=== PATIENT | female | born 1930 | race Caucasian/White ===

== ENCOUNTER 2020-03-22 10:11 | Emergency (ER) | payer OTHER ==
[2020-03-22] MEDS ORDERED: ONDANSETRON 4 MG/2 ML VIAL ONE (11:00)
[2020-03-22] MEDS ORDERED: NA CHLORIDE 0.9% 500 ML ONE (11:00)
[2020-03-22] MEDS ORDERED: MORPHINE 2 MG/ML SYR ONE (11:00)
[2020-03-22 11:18] LABS: Absolute Lymphocytes (CBC) 0.5 K/uL (0.7-4.9); Basophils % 0.5 % (0-1.3); Hematocrit 38.3 % (36.0-45.0); Lymphocytes % 10.2 % (15.3-44.8); MPV 7.6 fL (7.6-11.3); RBC Red Blood Cell Count 4.37 M/uL (3.86-4.86)
[2020-03-22 11:38] LABS: Albumin 3.5 g/dL (3.4-5.0); Bilirubin Total 0.7 mg/dL (0.2-1.0); CKMB Creatine Kinase MB 2.8 ng/mL (0.3-3.6); Potassium 4.1 mmol/L (3.5-5.1); Protein, Total 7.4 g/dL (6.4-8.2); Troponin (Emerg Dept Use Only) 0.02 ng/mL (0.0-0.045)
--- NOTE | 2020-03-22 11:48 | RAD REPORT ---
EXAM DESCRIPTION: CT - Angio Aorta For Dissection - 03/22/2020 11:32 am CLINICAL HISTORY: DISSECTION COMPARISON: CT chest April 2017 TECHNIQUE: Dynamically enhanced 3 mm thick images of the chest, abdomen, and upper pelvis were obtai libia during administration of approximately 150mL Isovue 370 IV contrast. Sagittal and coronal reconst ruction images were generated using MIP and reviewed. Exam utilizes a protocol to evaluate entire cou rse of the aorta. All CT scans are performed using dose optimization technique as appropriate and may include automated exposure control or mA/KV adjustment according to patient size. FINDINGS: No aortic aneurysm, dissection or acute finding seen. Ascending aorta is 3.5 cm. Patient h as prominent aortic calcifications without central displacement. No mural thrombus. Pulmonary arteries are normal as well. Biatrial enlargement increases overall cardiac size. There is suspected left ventricular hypertrophy as well. No E fusion. No acute infiltrate or mass identified. Parenchymal opacification in the anterior midportion of each lung field has some associated bronchiectasis. This appears to be all chronic lung disease. Minimal n odularity in the lateral mid right chest is also stable. No pleural thickening, pleural effusion or p neumothorax. No abnormal mediastinal or hilar mass or lymphadenopathy seen. No chest wall mass or abnormal axillar y lymphadenopathy. No esophageal wall thickening or mass identifiable. Celiac, SMA and renal arteries show no suspicious findings. Solid abdominal viscera show no suspiciou s findings. Renal function is symmetric. Patient has a prominent gallbladder. Gallstones are present in the fundus. No biliary tree dilatation. No mass or abnormal lymphadenopathy. No acute bowel findi ng seen. Moderate stool volume throughout the colon. Minimal congestion or edema of the peritoneal an d subcutaneous fatty tissues. No free air or pneumatosis. No uterine or urinary bladder abnormality. Ovaries are not clearly defined. No adnexal mass. Approximately 50-60% T8 compression fracture is seen. No pathologic component. Posterior elements are intact. No paraspinal component. Fracture was not present 2017. IMPRESSION: Aortic atherosclerotic calcifications without dissection, aneurysm or acute aortic findi ng. Approximately 50-60% T8 compression fracture. This is new from 2017 and shows some characteristics in dicating that this is acute or subacute in age. No pathologic component. Chronic fibro emphysematous lung changes not substantially different from 2017. Cardiomegaly with esteban trial enlargement and suspected left ventricular muscular hypertrophy. No other significant findings on chest, abdomen and upper pelvis examination.
[2020-03-22 11:49] LABS: Urine Blood NEGATIVE (NEG); Urine Glucose NEGATIVE (NEG); Urine Protein NEGATIVE (NEG); Urine pH 5.5 (5.0-7.0)
[2020-03-22] MEDS ORDERED: CEFTRIAXONE/SWI 1gm 1 GM/10 ML SYR ONE (12:00)
[2020-03-22 13:33] VITALS: TEMP 97.7
[2020-03-22 13:39] VITALS: BP 140/86; O2SAT 94
--- NOTE | 2020-03-22 19:58 | ER ---
Nurse's Notes [facility] Name: Marcela Urban Age: 89 yrs Sex: Female : 1930 Arrival Date: 03/22/2020 Time: 10:12 Bed 19 Private MD: Diagnosis: Fracture of thoracic vertebra-T8;Urinary tract infection, site not specified;Atrial fibrillation and flutter Presentation: 03/22 10:22 Chief complaint: Patient states: back pain x 1 week. Coronavirus screen: Proceed with normal triage. Patient denies a cough. Patient denies shortness of breath or difficulty breathing. Patient denies measured and/or subjective temperature greater than 100.4F prior to today's visit. Patient denies travel on a cruise ship or to a country the [facility] currently lists as an affected area. Patient denies contact with known and/or suspected case of COVID-19. Ebola Screen: Patient denies exposure to infectious person. Patient denies travel to an Ebola-affected area in the 21 days before illness onset. Initial Sepsis Screen: Does the patient meet any 2 criteria? No. Patient's initial sepsis screen is negative. Does the patient have a suspected source of infection? No. Patient's initial sepsis screen is negative. Risk Assessment: Do you want to hurt yourself or someone else? Patient reports no desire to harm self or others. Onset of symptoms is unknown. 10:22 Method Of Arrival: Ambulatory 10:22 Acuity: THU 4 ss Historical: - Allergies: 10:24 No Known Allergies; ss - PMHx: 10:24 Atrial Fib; Hypertension; Hypothyroidism; ss - PSHx: 10:24 Laminectomy; Right Shoulder; ss - Immunization history:: Adult Immunizations up to date. - Social history:: Smoking status: Patient denies any tobacco usage or history of. - Family history:: not pertinent. Screenin:29 Abuse screen: Denies threats or abuse. Nutritional screening: No deficits noted. Tuberculosis screening: No symptoms or risk factors identified. Fall Risk None identified. Assessment: 10:26 General: Appears uncomfortable, Behavior is cooperative, appropriate for age. Pain: Pain radiates to left mid back and right mid back Pain currently is 6 out of 10 on a pain scale. Neuro: Level of Consciousness is awake, alert, obeys commands, Oriented to person, place. Cardiovascular: Capillary refill < 3 seconds Patient's skin is warm and dry. Respiratory: Airway is patent. GI: Abdomen is non-distended, Bowel sounds present X 4 quads. Abd is non tender. GI: Parent/caregiver reports the patient having flatulence. : No signs and/or symptoms were reported regarding the genitourinary system. Musculoskeletal: Circulation, motion, and sensation intact. Capillary refill < 3 seconds. Vital Signs: 10:22 BP 140 / 87; Resp 17; Temp 97.7(TE); Weight 43.54 kg; ss 10:45 BP 134 / 77; Pulse 71; Resp 18; Pulse Ox 100% ; ah 11:15 BP 131 / 96; Pulse 80; Resp 17; Pulse Ox 100% ; ah 12:00 BP 135 / 74; Pulse 69; Resp 16; Pulse Ox 100% ; ah 12:30 BP 140 / 86; Pulse 64; Resp 16; Pulse Ox 94% ; ah ED Course: 10:12 Patient arrived in ED. [facility] 10:15 Michael Richardson MD is Attending Physician. ermias 10:16 Keyla Fox, RN is Primary Nurse. ah 10:23 Triage completed. ss 10:24 Arm band placed on right wrist. ss 10:29 Patient has correct armband on for positive identification. Placed in gown. Bed in low ah position. Call light in reach. Side rails up X 1. Adult w/ patient. Pulse ox on. NIBP on. 11:00 Inserted saline lock: 20 gauge in right antecubital area, using aseptic technique. ah 11:01 Urine collected: clean catch specimen, clear. dh3 11:12 Lipase Sent. ah 11:35 CT Aorta for Dissection In Process Unspecified. EDMS 12:11 Eliecer Murdock MD is Referral Physician. ermias 12:11 Jonathan Brown MD is Referral Physician. ermias 12:30 No provider procedures requiring assistance completed. IV discontinued, intact, ah bleeding controlled, No redness/swelling at site. Administered Medications: 11:00 Drug: NS 0.9% 500 ml Route: IV; Rate: bolus; Site: right antecubital; 12:17 Follow up: Response: No adverse reaction; IV Status: Completed infusion; IV Intake: ah 500ml 11:05 Drug: morphine 2 mg Route: IVP; Site: right antecubital; 12:16 Follow up: Response: No adverse reaction 11:05 Drug: Zofran (Ondansetron) 4 mg Route: IVP; Site: right antecubital; 12:16 Follow up: Response: No adverse reaction 11:45 Drug: Rocephin 1 grams Route: IV; Rate: per protocol; Site: right antecubital; 22:41 Follow up: Response: No adverse reaction; IV Status: Completed infusion Intake: 12:17 IV: 500ml; Total: 500ml. Outcome: 12:12 Discharge ordered by . ermias 12:30 Discharged to home via wheelchair. 12:30 Condition: stable 12:30 Discharge instructions given to patient, Instructed on discharge instructions, follow up and referral plans. Demonstrated understanding of instructions, follow-up care, medications, Prescriptions given X 2. 13:25 Patient left the ED. bd Signatures: Dispatcher [employer] EDMS Shawnee Arellano Corey, MD MD cha Smirch, Shelby, RN RN Danna Sellers [facility] Omar Simmons [facility] Keyla Fox, RN RN Corrections: (The following items were deleted from the chart) 12:16 12:15 morphine 2 mg IVP in right antecubital [facility]
--- NOTE | 2020-03-22 19:59 | EDPHYS ---
Physician Documentation [facility] Name: Marcela Urban Age: 89 yrs Sex: Female : 1930 Arrival Date: 03/22/2020 Time: 10:12 Bed 19 Private MD: LYNN Physician Michael Richardson HPI: 03/22 10:33 This 89 yrs old Female presents to ER via Ambulatory with complaints of Back ermias Pain. 10:33 The patient presents with pain that is acute, and decreased range of motion. The ermias symptoms are located in the left subscapular area, right subscapular area and thoracic area. Onset: The symptoms/episode began/occurred 3 day(s) ago. The pain does not radiate. Associated signs and symptoms: The patient has no apparent associated signs or symptoms. The problem was sustained when bending over, from unknown cause. Modifying factors: The patient symptoms are alleviated by nothing, remaining still, the patient symptoms are aggravated by any movement, bending. Severity of symptoms: At their worst the symptoms were mild, moderate, in the emergency department the symptoms are unchanged. The patient has not experienced similar symptoms in the past. Historical: - Allergies: 10:24 No Known Allergies; ss - PMHx: 10:24 Atrial Fib; Hypertension; Hypothyroidism; ss - PSHx: 10:24 Laminectomy; Right Shoulder; ss - Immunization history:: Adult Immunizations up to date. - Social history:: Smoking status: Patient denies any tobacco usage or history of. - Family history:: not pertinent. ROS: 10:33 Constitutional: Negative for fever, chills, and weight loss, Eyes: Negative for injury, ermias pain, redness, and discharge, ENT: Negative for injury, pain, and discharge, Neck: Negative for injury, pain, and swelling, Cardiovascular: Negative for chest pain, palpitations, and edema, Respiratory: Negative for shortness of breath, cough, wheezing, and pleuritic chest pain, Abdomen/GI: Negative for abdominal pain, nausea, vomiting, diarrhea, and constipation, : Negative for injury, bleeding, discharge, and swelling, MS/Extremity: Negative for injury and deformity, Skin: Negative for injury, rash, and discoloration, Neuro: Negative for headache, weakness, numbness, tingling, and seizure, Psych: Negative for depression, anxiety, suicide ideation, homicidal ideation, and hallucinations, Allergy/Immunology: Negative for hives, rash, and allergies, Endocrine: Negative for neck swelling, polydipsia, polyuria, polyphagia, and marked weight changes, Hematologic/Lymphatic: Negative for swollen nodes, abnormal bleeding, and unusual bruising. 10:33 Back: Positive for injury or acute deformity, decreased range of motion, pain at rest, pain with movement, of the left scapular area, right scapular area, left subscapular area, right subscapular area, thoracic area and lumbar area. Exam: 10:33 Constitutional: This is a well developed, well nourished patient who is awake, alert, ermias and in no acute distress. Head/Face: Normocephalic, atraumatic. Eyes: Pupils equal round and reactive to light, extra-ocular motions intact. Lids and lashes normal. Conjunctiva and sclera are non-icteric and not injected. Cornea within normal limits. Periorbital areas with no swelling, redness, or edema. ENT: Nares patent. No nasal discharge, no septal abnormalities noted. Tympanic membranes are normal and external auditory canals are clear. Oropharynx with no redness, swelling, or masses, exudates, or evidence of obstruction, uvula midline. Mucous membranes moist. Neck: Trachea midline, no thyromegaly or masses palpated, and no cervical lymphadenopathy. Supple, full range of motion without nuchal rigidity, or vertebral point tenderness. No Meningismus. Chest/axilla: Normal chest wall appearance and motion. Nontender with no deformity. No lesions are appreciated. Cardiovascular: Regular rate and rhythm with a normal S1 and S2. No gallops, murmurs, or rubs. Normal PMI, no JVD. No pulse deficits. Respiratory: Lungs have equal breath sounds bilaterally, clear to auscultation and percussion. No rales, rhonchi or wheezes noted. No increased work of breathing, no retractions or nasal flaring. Abdomen/GI: Soft, non-tender, with normal bowel sounds. No distension or tympany. No guarding or rebound. No evidence of tenderness throughout. Female : Normal external genitalia. Skin: Warm, dry with normal turgor. Normal color with no rashes, no lesions, and no evidence of cellulitis. MS/ Extremity: Pulses equal, no cyanosis. Neurovascular intact. Full, normal range of motion. Neuro: Awake and alert, GCS 15, oriented to person, place, time, and situation. Cranial nerves II-XII grossly intact. Motor strength 5/5 in all extremities. Sensory grossly intact. Cerebellar exam normal. Normal gait. Psych: Awake, alert, with orientation to person, place and time. Behavior, mood, and affect are within normal limits. 10:33 Back: pain, that is moderate, ROM is painful, normal spinal alignment noted, CVA tenderness, that is mild, vertebral tenderness, is not appreciated, muscle spasm, is appreciated in the left scapular area, right scapular area, left subscapular area, right subscapular area, thoracic area, lumbar area, left mid back and right mid back. 11:02 ECG was reviewed by the Attending Physician. [facility] Vital Signs: 10:22 BP 140 / 87; Resp 17; Temp 97.7(TE); Weight 43.54 kg; ss 10:45 BP 134 / 77; Pulse 71; Resp 18; Pulse Ox 100% ; 11:15 BP 131 / 96; Pulse 80; Resp 17; Pulse Ox 100% ; 12:00 BP 135 / 74; Pulse 69; Resp 16; Pulse Ox 100% ; 12:30 BP 140 / 86; Pulse 64; Resp 16; Pulse Ox 94% ; MDM: 10:15 Patient medically screened. [facility] 10:37 Data reviewed: vital signs, nurses notes, lab test result(s), EKG, radiologic studies, [facility] CT scan, plain films. 12:06 Differential diagnosis: Cholelithiasis chronic back pain, Ligament Injury [facility] Osteoarthritis Osteoporosis ruptured disc, Scoliosis spinal injury, sprain, Ureterolithiasis. Data interpreted: monitor technician: rate is 80 beats/min, rhythm is atrial fibrillation, Pulse oximetry: on room air is 97 %. Test interpretation: by ED physician or midlevel provider: ECG, plain radiologic studies. Counseling: I had a detailed discussion with the patient and/or guardian regarding: the historical points, exam findings, and any diagnostic results supporting the discharge/admit diagnosis, lab results, radiology results, the need for outpatient follow up, for definitive care, an toggler. Medication response: Zofran partially relieved the patient's nausea. 12:15 ED course: explained all findings, dw dr crook, will follow up dr ermias tan vertebroplasty possible, also uti will be treated. 03/22 10:33 Order name: CBC with Diff; Complete Time: 11:51 [facility] 03/22 10:33 Order name: Comprehensive Metabolic Panel; Complete Time: 11:51 [facility] 03/22 10:33 Order name: Lipase; Complete Time: 11:51 [facility] 03/22 10:33 Order name: CK; Complete Time: 11:51 [facility] 03/22 10:33 Order name: Ckmb; Complete Time: 11:51 [facility] 03/22 10:33 Order name: Troponin (emerg Dept Use Only); Complete Time: 11:51 [facility] 03/22 10:33 Order name: CT Aorta for Dissection; Complete Time: 11:51 [facility] 03/22 11:01 Order name: Urine Culture [facility] 03/22 11:45 Order name: Urine Dipstick--Ancillary (enter results); Complete Time: 11:51 03/22 11:58 Order name: CREATININE WHOLE BLOOD; Complete Time: 12:02 EDMS 03/22 10:33 Order name: Urine Dipstick-Ancillary (obtain specimen); Complete Time: 11:01 [facility] 03/22 10:33 Order name: EKG; Complete Time: 10:34 [facility] 03/22 10:33 Order name: EKG - Nurse/Tech; Complete Time: 11:02 [facility] EC:02 Rate is 77 beats/min. Rhythm is irregularly irregular. QRS [place] is Normal. VT interval ermias is normal. QRS interval is normal. QT interval is normal. No Q waves. T waves are Normal. No ST changes noted. Clinical impression: Atrial Fibrillation. Interpreted by me. Reviewed by me. Administered Medications: 11:00 Drug: NS 0.9% 500 ml Route: IV; Rate: bolus; Site: right antecubital; 12:17 Follow up: Response: No adverse reaction; IV Status: Completed infusion; IV Intake: ah 500ml 11:05 Drug: morphine 2 mg Route: IVP; Site: right antecubital; 12:16 Follow up: Response: No adverse reaction 11:05 Drug: Zofran (Ondansetron) 4 mg Route: IVP; Site: right antecubital; 12:16 Follow up: Response: No adverse reaction 11:45 Drug: Rocephin 1 grams Route: IV; Rate: per protocol; Site: right antecubital; 22:41 Follow up: Response: No adverse reaction; IV Status: Completed infusion Disposition: 03/22/20 12:12 Discharged to Home. Impression: Fracture of thoracic vertebra - T8, Urinary tract infection, site not specified, Atrial fibrillation and flutter. - Condition is Stable. - Discharge Instructions: Atrial Fibrillation, Spinal Compression Fracture, Urinary Tract Infection, Adult, Urinary Tract Infection, Adult, [id number]-[id number], Balloon Kyphoplasty, Care After, Balloon Kyphoplasty. - Prescriptions for Augmentin 500- 125 mg Oral Tablet - take 1 tablet by ORAL route every 12 hours for 7 days; 14 tablet. Tylenol- Codeine #3 300-30 mg Oral Tablet - take 1 tablet by ORAL route every 4 hours As needed; 26 tablet. - Medication Reconciliation Form, Thank You Letter, Antibiotic Education, Prescription Opioid Use form. - Follow up: Private Physician; When: 2 - 3 days; Reason: Recheck today's complaints, Continuance of care, Re-evaluation by your physician. Follow up: Eliecer Murdock MD; When: 2 - 3 days; Reason: Recheck today's complaints, Continuance of care, Re-evaluation by your physician. Follow up: Jonathan Tan MD; When: 2 - 3 days; Reason: Recheck today's complaints, Re-evaluation by your physician. - Problem is new. - Symptoms have improved. Signatures: Dispatcher [employer] EDMS Shawnee Arellano Corey, MD MD cha Smirch, Shelby, RN RN Keyla Fox RN RN Corrections: (The following items were deleted from the chart) 13:25 12:12 03/22/2020 12:12 Discharged to Home. Impression: Fracture of thoracic vertebra - bd T8; Urinary tract infection, site not specified; Atrial fibrillation and flutter. Condition is Stable. Forms are Medication Reconciliation Form, Thank You Letter, Antibiotic Education, Prescription Opioid Use. Follow up: Private Physician; When: 2 - 3 days; Reason: Recheck today's complaints, Continuance of care, Re-evaluation by your physician. Follow up: Eliecer Murdock; When: 2 - 3 days; Reason: Recheck today's complaints, Continuance of care, Re-evaluation by your physician. Follow up: Jonathan Tan; When: 2 - 3 days; Reason: Recheck today's complaints, Re-evaluation by your physician. Problem is new. Symptoms have improved. ermias
== END 2020-03-22 13:25 | disposition home or self-care (01) ==
LOC: ER 10:11
DX: N39.0 Urinary tract infection, site not specified (principal); I48.91 Unspecified atrial fibrillation; I48.92 Unspecified atrial flutter
CPT/HCPCS: 93005; 87088; 85025; 87086; 36415; 82550; 82565; 81003; 84484; 82553; 83690; 80053; 71275; 74175; Q9967; J2270; J0696; J7040; J2405; 87077; 87186; 96361; 96365; 96366; 96375; 99284

== ENCOUNTER 2020-04-06 21:43 | Observation (INO) | payer OTHER ==
[2020-04-06 22:23] LABS: Absolute Lymphocytes (CBC) 0.7 K/uL (0.7-4.9); Basophils % 1.1 % (0-1.3); Hematocrit 34.4 % (36.0-45.0); Lymphocytes % 17.8 % (15.3-44.8); MPV 7.7 fL (7.6-11.3); RBC Red Blood Cell Count 3.89 M/uL (3.86-4.86)
[2020-04-06 22:27] LABS: Protime INR 1.63
[2020-04-06 22:38] LABS: Magnesium 2.1 mg/dL (1.8-2.4); Potassium 4.5 mmol/L (3.5-5.1); Troponin (Emerg Dept Use Only) 0.02 ng/mL (0.0-0.045)
--- NOTE | 2020-04-06 23:16 | ER ---
Nurse's Notes [facility] Name: Marcela Urban Age: 89 yrs Sex: Female : 1930 Arrival Date: 04/06/2020 Time: 21:47 Bed 2 Private MD: Diagnosis: Syncope and collapse;Unspecified atrial fibrillation Presentation: 04/06 21:37 Chief complaint: EMS states: Pt family states pt had a syncopal episode that lasted ea about ten minutes, family reported during the episode pt was shallow deep breathing. Coronavirus screen: Proceed with normal triage. Ebola Screen: No symptoms or risks identified at this time. Initial Sepsis Screen: Does the patient meet any 2 criteria? No. Patient's initial sepsis screen is negative. Does the patient have a suspected source of infection? No. Patient's initial sepsis screen is negative. Risk Assessment: Do you want to hurt yourself or someone else? Patient reports no desire to harm self or others. Onset of symptoms was April 06, 2020. 21:37 Method Of Arrival: EMS: [facility] ea 21:37 Acuity: THU 3 ea Historical: - Allergies: 21:52 No Known Allergies; ea - Home Meds: 21:52 Xarelto 20 mg Oral tab 1 tab once daily [Active]; amlodipine 5 mg tab 1 tab once daily ea [Active]; - PMHx: 21:52 Hypothyroidism; Hypertension; Atrial Fib; ea - PSHx: 21:52 Right Shoulder; Laminectomy; ea - Immunization history:: Adult Immunizations unknown. - Social history:: Smoking status: Patient denies any tobacco usage or history of. - Family history:: not pertinent. - Hospitalizations: : No recent hospitalization is reported. Screenin:50 Abuse screen: Denies threats or abuse. Nutritional screening: No deficits noted. ea Tuberculosis screening: No symptoms or risk factors identified. Fall Risk IV access (20 points). Assessment: 21:53 General: Appears in no apparent distress. Behavior is calm, cooperative. Pain: Denies ea pain. Neuro: Level of Consciousness is awake, alert, Oriented to person. Cardiovascular: Patient's skin is warm and dry. Rhythm is atrial fibrillation. Respiratory: Airway is patent Respiratory effort is even, unlabored, Respiratory pattern is regular, symmetrical. Derm: Skin is pink, warm \T\ dry. 22:50 Reassessment: Patient and/or family updated on plan of care and expected duration. Pain ea level reassessed. Pt alert and awake oriented to self. Respirations even and unlabored, chest expansions even and symmetrical. No s/s of pain or discomfort noted at this time. 23:49 Reassessment: Patient and/or family updated on plan of care and expected duration. Pain ea level reassessed. Pt resting with eyes closed, respirations even and unlabored, chest expansions even and symmetrical. No s/s of pain or discomfort noted at [facility]. 04/07 00:00 Reassessment: Patient and/or family updated on plan of care and expected duration. Pain ea level reassessed. Pt resting with eyes closed, respirations even and unlabored, chest expansions even and symmetrical. No s/s of pain or discomfort noted at this time. 01:00 Reassessment: Patient and/or family updated on plan of care and expected duration. Pain ea level reassessed. Pt alert and oriented to self, assisted to the restroom. Pt tolerated well. 02:16 Reassessment: Patient and/or family updated on plan of care and expected duration. Pain ea level reassessed. Pt resting with eyes closed, respirations even and unlabored, chest expansions even and symmetrical. 02:24 Reassessment: Report called to Millie KIMBROUGH on second floor. ea Vital Signs: 04/06 21:37 BP 149 / 100; Pulse 61; Resp 16; Temp 97.4; Pulse Ox 98% ; ea 22:00 BP 151 / 89; Pulse 70; Resp 16; Pulse Ox 97% ; ea 23:00 BP 151 / 77; Pulse 60; Resp 18; Pulse Ox 97% on R/A; ea 04/07 01:55 BP 116 / 71; Pulse 55; Resp 16; Pulse Ox 97% on R/A; ea ED Course: 04/06 21:47 Patient arrived in ED. ea 21:47 Hong Bustos MD is Attending Physician. rn 21:50 Triage completed. ea 21:51 Arm band placed on left wrist. Patient placed in an exam room, on a stretcher, on pulse ea oximetry. 21:51 Patient has correct armband on for positive identification. Bed in low position. Call ea light in reach. monitor and storage bin tender on. Pulse ox on. NIBP on. 21:54 Nandini Mckeon, RN is Primary Nurse. ea 22:08 Inserted saline lock: 20 gauge in right antecubital area, using aseptic technique. jd3 Blood collected. 22:08 EKG done, by microbiological laboratory technician. reviewed by Hong Bustos MD. jd3 23:00 CT Head Brain wo Cont In Process Unspecified. EDMS 23:16 Eliecer Murdock MD is Hospitalizing Provider. rn 04/07 02:14 No provider procedures requiring assistance completed. Patient admitted, IV remains in ea place. Administered Medications: No medications were administered Outcome: 04/06 23:16 Decision to Hospitalize by Provider. rn 04/07 02:14 Condition: stable ea Instructed on the need for admit. 02:25 Admitted to Med/surg accompanied by nurse, via wheelchair, room 212, on monitor, Report ea called to Millie KIMBROUGH 03:03 Patient left the ED. jmira Signatures: Dispatcher [employer] EDNE Hong Bustos MD MD rn Antunez, Elena, RN RN Mike Brandt RN RN jd3
--- NOTE | 2020-04-06 23:17 | EDPHYS ---
Physician Documentation [facility] Name: Marcela Urban Age: 89 yrs Sex: Female : 1930 Arrival Date: 04/06/2020 Time: 21:47 Bed 2 Private MD: ED Physician Hong uBstos HPI: 04/06 21:51 This 89 yrs old Female presents to ER via EMS with complaints of Syncope. rn 21:51 The patient has experienced syncope. Onset: The symptoms/episode began/occurred just rn prior to arrival. Duration: This was a single episode, that lasted 10 minute(s). Associated injury: The patient did not suffer any apparent associated injury. Current symptoms: Currently, the patient is not experiencing any symptoms. The patient has not experienced similar symptoms in the past. Per EMS, patient with syncopal episode, was unresponsive, family member reported shallow breathing and possible cyanosis, patient denies symptoms prior to episode, no recent illness or problems. Currently asymptomatic. Denies pain.. Historical: - Allergies: 21:52 No Known Allergies; ea - Home Meds: 21:52 Xarelto 20 mg Oral tab 1 tab once daily [Active]; amlodipine 5 mg tab 1 tab once daily ea [Active]; - PMHx: 21:52 Hypothyroidism; Hypertension; Atrial Fib; ea - PSHx: 21:52 Right Shoulder; Laminectomy; ea - Immunization history:: Adult Immunizations unknown. - Social history:: Smoking status: Patient denies any tobacco usage or history of. - Family history:: not pertinent. - Hospitalizations: : No recent hospitalization is reported. ROS: 21:51 Constitutional: Negative for fever, chills, and weight loss, Eyes: Negative for injury, rn pain, redness, and discharge, Neck: Negative for injury, pain, and swelling, Cardiovascular: Negative for chest pain, palpitations, and edema, Respiratory: Negative for shortness of breath, cough, wheezing, and pleuritic chest pain, Abdomen/GI: Negative for abdominal pain, nausea, vomiting, diarrhea, and constipation, MS/Extremity: Negative for injury and deformity, Skin: Negative for injury, rash, and discoloration, Neuro: Negative for headache, weakness, numbness, tingling, and seizure. Exam: 21:51 Constitutional: This is a well developed, well nourished patient who is awake, alert, rn and in no acute distress. Head/Face: Normocephalic, atraumatic. ENT: MMM Cardiovascular: Irregularly irregular, intact and equal distal pulses Respiratory: Speaking full sentences. No increased work of breathing, no retractions or nasal flaring. Abdomen/GI: soft, non-tender Skin: Warm, dry MS/ Extremity: Pulses equal, no cyanosis. Neurovascular intact. Full, normal range of motion. Equal circumference. Neuro: Awake and alert, GCS 15. Cranial nerves II-XII grossly intact. Motor strength 5/5 in all extremities. Sensory grossly intact. Cerebellar exam normal. 22:05 ECG was reviewed by the Attending Physician. rn Vital Signs: 21:37 BP 149 / 100; Pulse 61; Resp 16; Temp 97.4; Pulse Ox 98% ; ea 22:00 BP 151 / 89; Pulse 70; Resp 16; Pulse Ox 97% ; ea 23:00 BP 151 / 77; Pulse 60; Resp 18; Pulse Ox 97% on R/A; ea 04/07 01:55 BP 116 / 71; Pulse 55; Resp 16; Pulse Ox 97% on R/A; ea MDM: 04/06 21:47 Patient medically screened. rn 23:14 Differential Diagnosis: cardiac arrhythmia, cerebrovascular accident, idiopathic rn syncope, transient ischemic attack, vasovagal episode. Data reviewed: vital signs, nurses notes, lab test result(s), EKG, radiologic studies, CT scan, and as a result, I will admit patient. Counseling: I had a detailed discussion with the patient and/or guardian regarding: the historical points, exam findings, and any diagnostic results supporting the discharge/admit diagnosis, lab results, radiology results, the need for further work-up and treatment in the hospital. Response to treatment: the patient's symptoms have markedly improved after treatment, and as a result, I will admit patient. Admission orders: after a detailed discussion of the patient's condition and case, the admit orders are written by me. Special discussion:. ED course: Pt back to baseline, brief periods of slow afib, but averaging in 50s, no acute findings in CT brain or bloodwork, plan to admit, hold rate control medication, and get cardiology consultation. Most likely cardiac event given length of time was unresponsive. . 04/06 21:50 Order name: Basic Metabolic Panel; Complete Time: 22:43 rn 04/06 21:50 Order name: CBC with Diff; Complete Time: 22:43 rn 04/06 21:50 Order name: CPK; Complete Time: :43 rn 04/06 21:50 Order name: Magnesium; Complete Time: :43 04/06 21:50 Order name: Protime (+inr); Complete Time: 22:43 04/06 21:50 Order name: Ptt, Activated; Complete Time: 22:43 rn 04/06 21:50 Order name: CT Head Brain wo Cont rn 04/06 21:50 Order name: Troponin (emerg Dept Use Only); Complete Time: :43 rn 04/06 21:50 Order name: EKG; Complete Time: :51 rn 04/06 21:50 Order name: Cardiac monitoring; Complete Time: : rn 04/06 21:50 Order name: EKG - Nurse/Tech; Complete Time: 22: 04/06 21:50 Order name: IV Saline Lock; Complete Time: : rn 04/06 21:50 Order name: Labs collected and sent; Complete Time: :04/07 02:10 Order name: Urine Dipstick--Ancillary (enter results) 04/06 21:50 Order name: NPO; Complete Time: :51 rn 04/06 21:50 Order name: O2 Per Protocol; Complete Time: :51 rn 04/06 21:50 Order name: O2 Sat Monitoring; Complete Time: 21:51 rn 04/06 21:50 Order name: Urine Dipstick-Ancillary (obtain specimen); Complete Time: 02:09 rn EC:05 Rate is 49 beats/min. Rhythm is irregularly irregular. Left axis deviation noted. QRS rn is positive in lead I and negative in lead aVF. QRS interval is normal. QT interval is normal. No Q waves. T waves are Normal. No ST changes noted. Clinical impression: Atrial Fibrillation. Interpreted by me. Reviewed by me. Administered Medications: No medications were administered Disposition: 04/06/20 23:16 Hospitalization ordered by Eliecer Murdock for Observation. Preliminary diagnosis are Syncope and collapse, Unspecified atrial fibrillation. - Bed requested for Telemetry/MedSurg (observation). - Status is Observation. jd3 - Condition is Stable. - Problem is new. - Symptoms have improved. Signatures: Dispatcher [employer] EDMS Hong Bustos MD MD rn Lasagna, Tonya RN RN tl1 Nandini Mckeon RN RN ea Davies, Jonathon RN RN jd3 Corrections: (The following items were deleted from the chart) 04/07 01:56 04/06 23:16 Hospitalization Ordered by A Collette SUMNER for Observation. Preliminary diagnosis tl1 is Syncope and collapse; Unspecified atrial fibrillation. Bed requested for Telemetry/MedSurg (observation). Status is Observation. Condition is Stable. Problem is new. Symptoms have improved. rn 04/07 03:03 01:56 04/06/2020 23:16 Hospitalization Ordered by A Collette SUMNER for Observation. jd3 Preliminary diagnosis is Syncope and collapse; Unspecified atrial fibrillation. Bed requested for Telemetry/MedSurg (observation). Status is Observation. Condition is Stable. Problem is new. Symptoms have improved. tl1
[2020-04-07 03:00] VITALS: BMI 17.8
[2020-04-07] MEDS ORDERED: ONDANSETRON 4 MG/2 ML VIAL IV PRN (03:09)
[2020-04-07] MEDS ORDERED: NA CHLORIDE 0.9% 1,000 ML IV SCH (03:09)
[2020-04-07 04:40] LABS: Absolute Lymphocytes (CBC) 0.8 K/uL (0.7-4.9); Hematocrit 31.3 % (36.0-45.0); Lymphocytes % 18.2 % (15.3-44.8); MPV 7.6 fL (7.6-11.3); RBC Red Blood Cell Count 3.57 M/uL (3.86-4.86)
[2020-04-07 04:58] LABS: Potassium 4.1 mmol/L (3.5-5.1); Troponin I 0.02 ng/mL (0.0-0.045)
--- NOTE | 2020-04-07 06:25 | EKG ---
Test Date: 2020-04-06 Test Time: 22:00:31 Cheesemaking Laborer: ANDIE MEASUREMENT RESULTS: Intervals: Rate: 49 [place]: QRSD: 68 QT: 470 QTc: 424 [place]: P: [place]: QRS: -30 T: -19 INTERPRETIVE STATEMENTS: Atrial fibrillation with slow ventricular response Left axis deviation Anteroseptal infarct, age undetermined Abnormal ECG Compared to ECG 03/22/2020 10:46:53 No significant changes Electronically Signed On 04-07-20 06:24:19 CDT by Veto Frank
[2020-04-07 08:36] VITALS: TEMP 97.6
[2020-04-07 08:42] VITALS: O2SAT 97
[2020-04-07] MEDS ORDERED: APIXABAN 2.5 MG TABLET PO SCH (09:00)
--- NOTE | 2020-04-07 09:03 | RAD REPORT ---
EXAM DESCRIPTION: CT - Chest For Pe Angio - 04/07/2020 8:38 am CLINICAL HISTORY: Chest pain. syncope COMPARISON: Thorax W/ Con dated 05/11/2017 TECHNIQUE: CT angiogram of the pulmonary arteries was performed with MIP. All CT scans are performed using dose optimization technique as appropriate and may include automated exposure control or mA/KV adjustment according to patient size. FINDINGS: No evidence of pulmonary thromboembolism. No acute aortic finding demonstrated. Prominent diffuse COPD. Scattered areas of linear subsegmental atelectasis is present. . No significant pericardial or pleural fluid. No concerning bony finding. IMPRESSION: No evidence of pulmonary thromboembolism. Prominent COPD.
[2020-04-07 10:26] VITALS: BP 159/75
--- NOTE | 2020-04-07 11:09 | ECHO ---
HEIGHT: 5 ft 2 in WEIGHT: 97 lb 9.6 oz DATE OF STUDY: 04/07/[address]: Veto Frank MD 2-DIMENSIONAL: YES M.MODE: YES DOPPLER: YES COLOR FLOW: YES TDS: NO PORTABLE: NO DEFINITY: NO BUBBLE STUDY: NO DIAGNOSIS: SYNCOPE CARDIAC HISTORY: CATHERIZATION: NO SURGERY: NO PROSTHETIC VALVE: NO PACEMAKER: NO MEASUREMENTS (cm) DIASTOLIC (NORMALS) SYSTOLIC (NORMALS) IVSd 0.9 (0.6-1.2) LA Diam 3.2 (1.9-4.0) LVEF 74% LVIDd 3.7 (3.5-5.7) LVIDs 2.2 (2.0-3.5) %FS 42% LVPWd 0.9 (0.6-1.2) Ao Diam 2.6 (2.0-3.7) 2 DIMENSIONAL ASSESSMENT: RIGHT ATRIUM: NORMAL LEFT ATRIUM: NORMAL RIGHT VENTRICLE: NORMAL LEFT VENTRICLE: NORMAL TRICUSPID VALVE: NORMAL MITRAL VALVE: MITRAL ANNULAR CALCIFICTION PULMONIC VALVE: NORMAL AORTIC VALVE: SCLEROSIS PERICARDIAL EFFUSION: NONE AORTIC ROOT: NORMAL LEFT VENTRICULAR WALL MOTION: NORMAL DOPPLER/COLOR FLOW: MILD TRICUSPID REGURGITATION. NORMAL RIGHT VENTRICULAR SYSTOLIC PRESSURE. MILD TO MODERATE MITRAL REGURGITATION. COMMENTS: NORMAL LEFT VENTRICULAR EJECTION FRACTION AND SIZE. MITRAL ANNULAR CALCIFICTION. MILD TO MODERATE MITRAL REGURGITATION. AORTIC SCLEROSIS WITH NO STENOSIS. MILD TRICUSPID REGURGITATION. NORMAL RIGHT VENTRICULAR SYSTOLIC PRESSURE. TECHNOLOGIST: Bruno CELESTE
--- NOTE | 2020-04-07 20:50 | RAD REPORT ---
EXAM DESCRIPTION: Head Brain Wo Cont CLINICAL HISTORY: SYNCOPE COMPARISON: None Available. TECHNIQUE: Multiple helical axial tomographic images were obtained of the head without intravenous c ontrast. This exam was performed according to our departmental dose-optimization program, which inclu aline automated exposure control, adjustment of the mA and/or kV according to patient size and/or use o f iterative reconstruction technique. FINDINGS: Generalized brain volume loss is demonstrated. Patchy areas of hypoattenuation in the cere bral white matter demonstrated suggestive of chronic microvascular ischemic changes. Small old infarc t of the left occipital lobe noted. There is no acute intracranial hemorrhage. No mass. No midline sh ift. No ventriculomegaly. Hein-white matter differentiation is maintained. Paranasal sinuses are clear. Mastoid air cells and middle ear spaces are clear. Changes of lens repla cement noted. Osseous structures are unremarkable. Surrounding soft tissues are unremarkable. IMPRESSION: No acute intracranial process. Electronically signed by: Conner Glaser MD 04/06/2020 11:09 PM CDT Due to temporary technical issues with the PACS/Fluency reporting system, reports are being signed by the in house radiologist without review as a courtesy to ensure prompt reporting. The interpreting r adiologist is fully responsible for the content of the report.
[2020-04-07] MEDS ORDERED: ENSURE ENLIVE 237 ML CAN PO SCH (21:00)
--- NOTE | 2020-04-07 23:21 | CON ---
Date of Consultation: 04/07/2020 Reason For Consultation: Syncope and atrial fibrillation. History Of Present Illness: Ms. Urban is an 89-year-old white woman. She is known to our practice fo many years. She used to see Dr. Fox for hypertension, atrial fibrillation, and hypothyroidism. Has done fairly well from a cardiac standpoint. She has suffered some increased dementia lately. S he had a syncopal episode with some cyanosis that lasted about 10 minutes while she was sitting down. Prior to the episode, there were no symptoms and after that she woke up. She was not postictal. C hest pain was not reported. She denied any nausea or vomiting or diaphoresis or palpitation. Denied fever or chills. When she came into the emergency room, her blood pressure was 151/85 with a heart rate of 66. She was afebrile. Past Medical History: As stated above. Allergies: NONE. Review of Systems: Negative. Social History: Negative. Family History: Noncontributory. Medications: Medications at home include Norvasc, Eliquis, Plaquenil, Synthroid, Benicar, Seroquel, Remeron, and she takes Toprol 100 mg daily. Physical Examination: General: She was alert and oriented x3. She was in no acute distress. Vital Signs: She was in AFib at a rate of 66. HEENT: Negative. Neck: Supple without any bruit, lymphadenopathy, JVD, or thyromegaly. Chest: Clear to auscultation and percussion. Cardiac: Revealed a regular rhythm and rate without any murmurs, gallops, or rubs. Abdomen: Benign. Extremities: Revealed no clubbing, cyanosis, or edema. Diagnostic Data: Fairly unremarkable except for hemoglobin of 10.1. Impression And Plan: Syncope. I believe it is most likely secondary to significant bradycardia. Pu lmonary embolus is another possibility and Dr. Murdock is ruling that out. CT angiogram is pending. Ec hocardiogram is pending. I think we should definitely continue her Eliquis and Norvasc. I would def initely stop her Toprol. I would suggest an outpatient event monitor for few days as an outpatient a nd I will make arrangements for that. We will see what her echo shows and her CTA shows prior to irlanda ing final decisions. NB/MODL Voice ID: [id number] Report ID: [id number]
--- NOTE | 2020-04-08 03:07 | SS ---
Date of Admission: 04/07/2020 Date of Discharge: 04/07/2020 Chief Complaint: Syncope. History Of Present Illness: This is an 89-year-old very pleasant female patient who lives at home, takes her medications regularly as her daughter fixes her medication and caregiver who comes to help her on a daily basis make sure that she takes her medication as prescribed. She was sitting in her chair and caregiver was with her and all of a sudden without any prior warning or symptoms patient passed out and caregiver noticed that the patient was turning cyanotic and was having some trouble breathing. Patient had passed out for approximately for maybe about 5 minutes or so and she was brought into the emergency room. When she came into ER, her EKG had shown atrial fibrillation with slow ventricular response. Patient was back to her normal self in the emergency room when she was admitted to the hospital. When I saw her this morning, she was back to her normal usual baseline. I did talk to daughter to get some more information and details. Patient is not able to provide any information or details. She denies any complaints this morning. She was able to recognize me, but otherwise she did not know what time was even where were she. She did not have any knowledge about any of those information. Allergies: TO CODEINE AND STEROIDS, BOTH MEDICATION CAUSE NIGHTMARES. Medications: Fosamax 70 mg once a week, amlodipine 5 mg daily, metoprolol succinate 100 mg daily, Eliquis 2.5 mg 2 times a day, Caltrate plus D 1 tablet by mouth 2 times a day, hydroxychloroquine 200 mg p.o. 2 times a day, levothyroxine 125 mcg p.o. daily, mirtazapine 15 mg at bedtime and Benicar 40 mg p.o. daily. Review of Systems: Cardiovascular: As mentioned above. IT SUPPORT MANAGER: As mentioned above. All other systems reviewed and negative. Past Medical History: Hypertension, hyperlipidemia, chronic atrial fibrillation, cervical spondylosis, osteoarthritis, osteoporosis. Past Surgical History: Cataract surgery, tonsillectomy, back surgery, shoulder surgery. Family History: Significant for father had stroke and heart disease. Mother , details unknown. Brother had [place]. Sister , details unknown. Social History: Negative for smoking. Use of alcohol: Occasional glass of wine. Physical Examination: Vital Signs: Temperature 97.1, pulse 66, respiratory rate 16, blood pressure 159/85, oxygen saturation 95%. Height 5 feet 2 inches, weight 97 pounds. Her supine blood pressure was 167/92, sitting blood pressure 173/99, standing blood pressure 159/88. General: Awake, alert, oriented, not in distress. HEENT: Head atraumatic, normocephalic. Conjunctivae nonerythematous. Sclerae white. Mouth, no thrush or edema noted. Ears/Nose, no mass, lesion, discharge noted. Neck: Supple. No JVD, lymph nodes, bruit, thyromegaly noted. Lungs: Bilateral good equal air entry. Clear to auscultation. No rhonchi. No rales. Heart: Normal heart sounds, no murmur or gallop. Abdomen: Soft, bowel sounds normal. No guarding, rigidity, tenderness, mass, hepatosplenomegaly, distention, or bruit noted. Extremities: No leg edema. No calf tenderness. Skin: No rash, ulcer, cellulitis. Lymphatics: No lymph node enlargement in neck, supraclavicular, infraclavicular region. Neuro/IT SUPPORT MANAGER: Patient is not oriented. She is able to recognize me, but otherwise she is not oriented at all and this is her baseline due to her underlying dementia. Chest: Unremarkable. External Genitalia: Deferred. Rectal: Deferred. Laboratory Data: Yesterday, white count 4.2, hemoglobin 11.2, platelets 238. Today, white count 4.2, hemoglobin 10.1, platelets 215. INR 1.63. Yesterday, sodium 135, potassium 4.5, chloride 101, bicarb 28, BUN 20, creatinine 0.97, glucose 147. Today, BUN 17, creatinine 0.73, glucose 109. Troponin 0.02. EKG was atrial fibrillation with ventricular rate 49 per minute. Hospital Course: After I saw patient, details were discussed with glue wheel operator, Dr. Frank. Patient had echocardiogram done which showed normal ejection fraction, mild mitral regurgitation and mitral annular calcification, otherwise no other significant abnormality noted on the echocardiogram. Details were discussed with Dr. Frank. A CT scan of the chest per PE protocol was ordered, which came back negative for pulmonary embolism. Dr. Frank and I have opinion that the patient's syncopal episode could have been due to severe bradycardia problem or some sort of heart block, will need to rule that out as a possibility. She is on metoprolol 100 mg daily. I will reduce dose to 25 mg daily and I have called the patient's daughter and details were discussed with her about our thought process as well as changing the medications. Dr. Frank will perform Holter monitor through his office on outpatient basis and I have advised the patient's daughter to bring her to office for followup next week, either Sunday or Sunday. Discharge Medications: Continue all prior home medication except stop metoprolol 100 mg dose and start metoprolol succinate 25 mg 1 tablet by mouth p.o. daily. Final Diagnoses: 1. Syncope. 2. Chronic atrial fibrillation. 3. Chronic anticoagulation therapy. 4. Hypertension. 5. Hypothyroidism. 6. Hyperlipidemia. 7. Osteoporosis. 8. Osteoarthritis, multiple sites. FARAZ/WHITNEY Voice ID: [id number] Report ID: [id number]
== END 2020-04-07 12:51 | disposition home or self-care (01) ==
LOC: ER 21:43 → ERHOLD 23:28 → 2ND 04-07 02:37
PROVIDERS: ADMIT Internal Medicine; ATTEND Internal Medicine
DX: R55 Syncope and collapse (principal); I48.20 Chronic atrial fibrillation, unspecified; I10 Essential (primary) hypertension; E03.9 Hypothyroidism, unspecified; E78.5 Hyperlipidemia, unspecified; M89.49 Other hypertrophic osteoarthropathy, multiple sites; F03.90 Unspecified dementia, unspecified severity, without behavioral disturbance, psychotic disturbance, mood disturbance, and anxiety; I34.0 Nonrheumatic mitral (valve) insufficiency; I07.1 Rheumatic tricuspid insufficiency; I35.8 Other nonrheumatic aortic valve disorders; Z11.59 Encounter for screening for other viral diseases; Z79.01 Long term (current) use of anticoagulants; Z79.899 Other long term (current) drug therapy
CPT/HCPCS: 93005; 93306; 85025 ×2; 80048 ×2; 36415; 83735; 82550; 85610; 85730; 84484 ×3; 70450; 71275; 99285; U0002; Q9967; J7030; G0378 ×2